=== PATIENT | female | born 1960 | race Caucasian/White ===

== ENCOUNTER → 2022-01-23 14:54 | Outpatient (BNVA) | payer MEDICAID, SELFPAY | PROVIDERS: PCP Pediatrics; Visit Provider Nurse Practitioner | DX: Z01.818 Encounter for other preprocedural examination (principal); D12.6 Benign neoplasm of colon, unspecified | CPT/HCPCS: 99202 ==

== ENCOUNTER 2022-05-28 11:39 | Day surgery (SDC) | payer MEDICAID, SELFPAY ==
[2022-05-22 13:46] VITALS: BMI 34.7
--- NOTE | 2022-05-25 12:03 | HO.ANESPROP2 ---
Documented by User: Jada Escalera NP 05/25/22 12:03 HPI - Anesthesia Eval Consult details Narrative: 61yo F for Colonoscopy PMFSH Active Problems Active Problems: All Active Problems (Updated 05/22/22 @ 13:45 by Leilani Joel, SELENA) Obesity (Acute) Tubular adenoma of colon (Acute) Allergic rhinitis (Acute) Varicose veins during (Acute) Alopecia (Acute) Pre-op examination (Acute) Past Medical History Medical History Anxiety Depression High cholesterol Osteoporosis Family History Family History Maternal Grandfather Heart attack Paternal Grandfather Heart attack Surgical History Surgical History Hx of colonoscopy Social History Social History 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 If so, by whom?: No Are you DNR?: No Advance Directives: No Advance Directives Information Provided: Yes Advance Directives on File: No Recently lost weight without trying: No Nutrition Risks: No Nutritional Risk Meds Allergies Allergy/AdvReac Type Severity Reaction Status Date / Time Sulfa (Sulfonamide Allergy Severe Hives Verified 05/22/22 13:42 Antibiotics) Seasonal Allergies Allergy Intermediate Sneezing Verified 05/22/22 13:43 Penicillins Allergy Unknown Verified 05/22/22 13:43 Home Medications Medication Instructions Recorded Confirmed Last Taken Type fluticasone propionate 50 1 spray intranasal BID 01/23/22 05/22/22 Unknown History mcg/actuation nasal spray,suspension sertraline 100 mg tablet 100 mg PO DAILY 01/23/22 05/22/22 Unknown History cholecalciferol (vitamin D3) 125 125 mcg PO DAILY 05/22/22 05/22/22 Unknown History mcg (5,000 unit) tablet (Vitamin D3) Exam Exam Date and Time: May 25, 2022 1203 Height,Weight and Vital Signs: Height 5 ft 5 in Weight 94.801 kg Assessment and Plan Assessment Anesthesia Assessment: Chart Reviewed Documented by User: Beatriz Fernandes MD 05/28/22 12:59 [facility] Past Medical History Medical History Anxiety Depression High cholesterol Osteoporosis Family History Family History Maternal Grandfather Heart attack Paternal Grandfather Heart attack Surgical History Surgical History Hx of colonoscopy History of Problems with Anesthesia: No Social History Social History 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 If so, by whom?: No Are you DNR?: No Advance Directives: No Advance Directives Information Provided: Yes Advance Directives on File: No Recently lost weight without trying: No Nutrition Risks: No Nutritional Risk Meds Allergies Allergy/AdvReac Type Severity Reaction Status Date / Time Sulfa (Sulfonamide Allergy Severe Hives Verified 05/22/22 13:42 Antibiotics) Seasonal Allergies Allergy Intermediate Sneezing Verified 05/22/22 13:43 Penicillins Allergy Unknown Verified 05/22/22 13:43 Home Medications Medication Instructions Recorded Confirmed Last Taken Type fluticasone propionate 50 1 spray intranasal BID 01/23/22 05/22/22 Unknown History mcg/actuation nasal spray,suspension sertraline 100 mg tablet 100 mg PO DAILY 01/23/22 05/22/22 Unknown History cholecalciferol (vitamin D3) 125 125 mcg PO DAILY 05/22/22 05/22/22 Unknown History mcg (5,000 unit) tablet (Vitamin D3) Exam Airway Mallampati Class: II TM Dist: >3cm Neck ROM: Full Loose/Missing/Broken Teeth: No Heart: RRR Lungs: CTA Assessment and Plan Assessment Anesthesia Assessment: Anesthesia Plan Discussed Final Anesthetic Review History of Problems with Anesthesia: No NPO: Yes ASA Class: II Final Preanesthetic Review: Meds/Allgs Chart Reviewed, Consent Obtained/Reviewed and Anes Risks/Benef Reviewed Patient Risk: Low Procedure Risk: Low Anesthetic Plan Anesthetic Plan: MAC: Disposition: Standard PACU
[2022-05-28] MEDS: Lactated Ringers 1,000 ML 100 ML IVCONT (12:25)
--- NOTE | 2022-05-28 12:29 | MHC.SHP ---
Pre-Procedural Eval Section A Date of Service: 05/28/22 The patient is an INPATIENT: No The History & Physical has been completed within 30 days and I have reviewed it.: No Section B Chief Complaint: screening, Benign neoplasm of colon, Details of Present Illness: screening, hx of colon polyps Relevant Family History (Specify if Yes): No Relevant Social History: None Present Medications: see Short Stay Collaborative assessment Medical History: Significant History (Depression High cholesterol Osteoporosis) History of Previous Operations: Relevant previous surgery/procedure and date(s) (hx of colonoscopy) Allergies: Allergies Allergy/AdvReac Type Severity Reaction Status Date / Time Sulfa (Sulfonamide Allergy Severe Hives Verified 05/22/22 13:42 Antibiotics) Seasonal Allergies Allergy Intermediate Sneezing Verified 05/22/22 13:43 Penicillins Allergy Unknown Verified 05/22/22 13:43 Review of Systems Sugical H&P ROS: Negative: Constitution, Cardiovascular, Respiratory and Gastrointestinal Exam Surgical H&P Exam: Normal: Heart, Normal: Lungs, Normal: Extremities and Normal: Abdomen Plan Diagnosis/Plan: Unchanged I have reviewed the history and physical and performed a pertinent physical examination on my patient. No changes have occurred unless specified. Time Spent With Patient Time: Total time managing care of this patient today ____ minutes.
--- NOTE | 2022-05-28 13:11 | PM.OP ---
Brief Operative Note Date of Service: 05/28/22 Pre-op diagnosis: Colon cancer screening, history of colon polyps Post-op diagnosis: other (Colon polyps) Procedure: COLONOSCOPY TO CECUM WITH BIOPSY, SNARE POLYPECTOMY AND HEMOCLIP PLACEMENT Surgeon: Olga Rinaldi MD Anesthesia: MAC Was an Tire Setter used for this Procedure?: Yes Tire Setter: Amara Mcgee Estimated blood loss (mL): 1 Pathology: other (A. transverse colon polyps (2) B. random right colon bx, R/O microscopic colitis C. random left colon bxs, R/O microscopic colitis D. rectal polyp) Condition: stable Disposition: PACU
--- NOTE | 2022-05-28 13:11 | W.PM.OPN ---
Operative Note Operative Note Date of Service: 05/28/22 Narrative: Pre-op diagnosis: Colon cancer screening, history of colon polyps Post-op diagnosis:?other (Colon polyps) Surgeon: Olga Rinaldi MD Anesthesia:?MAC COLONOSCOPY TILL CECUM WITH BIOPSIES, SNARE POLYPECTOMY AND HEMOCLIP PLACEMENT Consent: Indications for the procedure and potential complications of bleeding, perforation, reaction to medications and missed diagnosis were discussed with the patient and informed consent was obtained. Instrument: Olympus PCF H 190 L variable stiffness pediatric colonoscope Monitoring: Vital signs and clinical assessment, intermittent blood pressure monitoring, continuous EKG monitoring, Pulse oximetry and Carbon Dioxide monitoring were done throughout the procedure. Colon withdrawl time was 24 minutes. Procedure: The patient was placed in the left lateral decubitis position and pre-procedure medications were administered. After a digital rectal examination of the ano-rectum, the video colonoscope was inserted into the rectum and advanced through the colon to the cecum. The colonoscope was slowly withdrawn in a retrograde panoramic fashion and the colon mucosa was carefully examined including a retroflexed view of the rectum. Findings and interventions are described below. Procedure Difficulty: Without difficulty Findings: Terminal Ileum: Not evaluated Cecum: A 1.5 cms non-bleeding AVM Ascending Colon: Normal Transverse Colon: A 4-5 mm sessile polyp removed with a cold biopsy. A 10-12 mm sessile polyp removed with a cold snare Descending Colon: Normal Sigmoid Colon: Normal. Rectum: A 4-5 mm sessile polyp removed with a cold bx. Some bleeding noted at polypectomy site - controlled with placement of a hemo-clip. Ano-rectum: Ciarra-anal skin tags Colon preparation: Good Impression and Post Procedure Diagnosis: Colonoscopy Findings: Three small to medium sized polyps removed. A 1.5 cms non-bleeding AVM. Random biopsies were obtained from the right and left colon to check for microscopic colitis Plan: Await pathology results Patient has an appointment on 06/12/22 in the [facility] with Alfreda Cabrera NP. Repeat Colonoscopy interval based on path results - in 3-5 years if polyps are adenomatous and 10 years if polyps are hyperplastic. Above findings were reviewed with the patient and colon polyps handout was given in the discharge area
[2022-05-28 13:51] VITALS: BP 102/57; PULSE 65; RESP 16; TEMP 36.8; O2SAT 98
[2022-05-28 14:06] VITALS: BP 106/59; PULSE 60; RESP 16; TEMP 36.5; O2SAT 98
[2022-05-28 14:21] VITALS: BP 119/74; PULSE 66; RESP 18; TEMP 37.1; O2SAT 98
== END 2022-05-28 15:41 | disposition home or self-care (01) ==
PROVIDERS: PCP Pediatrics; Visit Provider Internal Medicine Gastroenterology
PROC: 0DJD8ZZ Inspection of Lower Intestinal Tract, Via Natural or Artificial Opening Endoscopic (ICD-10-PCS; CPT 45378; principal; 2022-05-28 12:30)
DX: Z12.11 Encounter for screening for malignant neoplasm of colon (principal); Z86.010 Personal history of colon polyps; D12.3 Benign neoplasm of transverse colon; K62.1 Rectal polyp; R19.7 Diarrhea, unspecified; K55.20 Angiodysplasia of colon without hemorrhage; K64.4 Residual hemorrhoidal skin tags; F32.A Depression, unspecified; E78.00 Pure hypercholesterolemia, unspecified; M81.0 Age-related osteoporosis without current pathological fracture; Z79.899 Other long term (current) drug therapy; Z88.0 Allergy status to penicillin; Z88.2 Allergy status to sulfonamides
CPT/HCPCS: 45385; 45380; 88305

== ENCOUNTER → 2022-06-12 15:30 | Outpatient (BNVA) | payer MEDICAID, SELFPAY | PROVIDERS: PCP Pediatrics; Visit Provider Nurse Practitioner | DX: Z01.818 Encounter for other preprocedural examination (principal); D12.6 Benign neoplasm of colon, unspecified; E78.00 Pure hypercholesterolemia, unspecified; M81.0 Age-related osteoporosis without current pathological fracture; F41.8 Other specified anxiety disorders | CPT/HCPCS: 99212 ==